=== PATIENT | female | born 2000 | race Caucasian/White ===

== ENCOUNTER 2023-05-06 14:06 | Emergency (ER) | payer OTHER ==
[~2023-05-06] VITALS: Ht 167.6 cm; Wt 77.1 kg
[2023-05-06] MEDS ORDERED: LEXAPRO5 MG PO (15:56)
== END 2023-05-06 19:49 | disposition home or self-care (01) ==
LOC: ER 14:06
DX: S92.352A Displaced fracture of fifth metatarsal bone, left foot, initial encounter for closed fracture (principal); W19.XXXA Unspecified fall, initial encounter; Y93.9 Activity, unspecified; Y92.9 Unspecified place or not applicable; Y99.9 Unspecified external cause status